=== PATIENT | female | born 1965 | race Caucasian/White ===

== ENCOUNTER → 2017-03-08 | Outpatient (CLI) | payer OTHER ==
[~2017-03-08] VITALS: Ht 154.9 cm; Wt 51.7 kg
[~2017-03-08] MED LIST: AUGMENTIN875 MG PO; INSULIN PUMP
[2017-03-08 09:59] LABS: POINT-OF-CARE METER ID UU14107333
[2017-03-08 11:41] LABS: POINT-OF-CARE METER ID UU13113819
== END | disposition home or self-care (01) ==
LOC: AMB 09:24
PROVIDERS: Internal Medicine
PROC: 0DJD8ZZ Inspection of Lower Intestinal Tract, Via Natural or Artificial Opening Endoscopic (ICD-10-PCS; principal; 2017-03-08)
DX: Z12.11 Encounter for screening for malignant neoplasm of colon (principal); K64.8 Other hemorrhoids; K62.89 Other specified diseases of anus and rectum; E10.9 Type 1 diabetes mellitus without complications; Z79.4 Long term (current) use of insulin; Z96.41 Presence of insulin pump (external) (internal); F17.200 Nicotine dependence, unspecified, uncomplicated
CPT/HCPCS: 82948; J2250; J3010